=== PATIENT | female | born 1955 | race Two or more races ===

== ENCOUNTER 2016-10-21 08:23 | Emergency (ER) | payer OTHER ==
[2016-10-21 08:29] VITALS: BMI 25.0
--- NOTE | 2016-10-21 09:03 | PDOC ---
History of Present Illness <Donaldo Chavez - Last Filed: 10/21/16 10:56> - History of Present Illness Initial Comments: 10/21/16 08:58 Ms. Logan is a 61 year old female with a significant past medical history of HTN and hyperlipidemia who presents to the emergency department with a 2-3 week history of cough with intermittent chest pain she reports is unrelated to the cough. She also reports recent increased urinary frequency. The patient denies, shortness of breath, headache and dizziness. Denies fever, chills, nausea, vomit, diarrhea and constipation. Denies dysuria, urgency and hematuria. Allergies: NKDA Past surgical history: Denies Social history: Denies PMD - None <Gio Barakat - Last Filed: 10/21/16 11:43> - General Chief Complaint: Respiratory Stated Complaint: HEADACHE Time Seen by Provider: 10/21/16 08:40 Past History <Donaldo Chavze - Last Filed: 10/21/16 10:56> - Past Medical History HTN: Yes Hypercholesterolemia: Yes - Psycho/Social/Smoking Cessation Hx Suicidal Ideation: No Smoking History: Never smoked <Gio Barakat - Last Filed: 10/21/16 11:43> - Past Medical History Allergies/Adverse Reactions: Allergies Allergy/AdvReac Type Severity Reaction Status Date / Time No Known Allergies Allergy Verified 10/21/16 08:24 Home Medications: Ambulatory Orders Benzonatate [Tessalon Pearls -] 100 mg PO TID #21 capsule 10/21/16 Hydrochlorothiazide [Hctz -] 25 mg PO DAILY 10/21/16 Simvastatin 40 mg PO DAILY 10/21/16 Review of Systems - Review of Systems Comments:: 10/21/16 08:58 GENERAL/CONSTITUTIONAL: No fever or chills. No weakness. HEAD, EYES, EARS, NOSE AND THROAT: No change in vision. No ear pain or discharge. No sore throat. CARDIOVASCULAR: +Intermittent chest pain with cough. No shortness of breath RESPIRATORY: +Dry cough on and off. No wheezing, or hemoptysis. GASTROINTESTINAL: No nausea, vomiting, diarrhea or constipation. GENITOURINARY: +Recent increased frequency. No dysuria, or change in urination. MUSCULOSKELETAL: No joint or muscle swelling or pain. No neck or back pain. SKIN: No rash NEUROLOGIC: No headache, vertigo, loss of consciousness, or change in strength/ sensation. ENDOCRINE: No increased thirst. No abnormal weight change HEMATOLOGIC/LYMPHATIC: No anemia, easy bleeding, or history of blood clots. ALLERGIC/IMMUNOLOGIC: No hives or skin allergy. 10/21/16 09:50 <Gio Barakat - Last Filed: 10/21/16 11:43> *Physical Exam - Vital Signs Last Vital Signs Temp Pulse Resp BP Pulse Ox 98 F 83 19 148/84 100 10/21/16 08:24 10/21/16 08:24 10/21/16 08:24 10/21/16 08:24 10/21/16 09:00 <Donaldo Chavez - Last Filed: 10/21/16 10:56> - Vital Signs Last Vital Signs Temp Pulse Resp BP Pulse Ox 98 F 83 19 148/84 97 10/21/16 08:24 10/21/16 08:24 10/21/16 08:24 10/21/16 08:24 10/21/16 08:24 - Physical Exam Comments: 10/21/16 08:59 GENERAL: Awake, alert, and fully oriented, in no acute distress HEAD: No signs of trauma, normocephalic, atraumatic EYES: PERRLA, EOMI, sclera anicteric, conjunctiva clear ENT: Auricles normal inspection, hearing grossly normal, nares patent, oropharynx clear without exudates. Moist mucosa NECK: Normal ROM, supple, no lymphadenopathy, JVD, or masses LUNGS: +Dry cough observed. Mild reproducible pain on sternal palpation. No distress, speaks full sentences, clear to auscultation bilaterally HEART: Regular rate and rhythm, normal S1 and S2, no murmurs, rubs or gallops, peripheral pulses normal and equal bilaterally. ABDOMEN: Soft, nontender, normoactive bowel sounds. No guarding, no rebound. No masses EXTREMITIES: Normal inspection, Normal range of motion, no edema. No clubbing or cyanosis. NEUROLOGICAL: Cranial nerves II through XII grossly intact. Normal speech, normal gait, no focal sensorimotor deficits SKIN: Warm, Dry, normal turgor, no rashes or lesions noted. <Gio Barakat - Last Filed: 10/21/16 11:43> Heart Score/ECG Review - ECG Impressions Comment:: 10/21/16 09:52 Normal rate, normal rhythm. Normal access, no concerning ST elevations. Normal EKG. <Gio Barakat - Last Filed: 10/21/16 11:43> ED Treatment Course - LABORATORY CBC & Chemistry Diagram: 10/21/16 09:45 10/21/16 09:45 - ADDITIONAL ORDERS Additional order review: Laboratory Results 10/21/16 10/21/16 10/21/16 10:32 10:32 09:45 Sodium 142 Potassium 4.0 Chloride 104 Carbon Dioxide 30 Anion Gap 8 BUN 9 Creatinine 0.8 Creat Clearance w eGFR > 60 Random Glucose 93 Calcium 9.4 Total Bilirubin 1.1 H AST 18 ALT 22 Alkaline Phosphatase 79 Creatine Kinase Cancelled Troponin I Cancelled Total Protein 7.2 Albumin 3.7 Urine Color Colorless Urine Appearance Clear Urine pH 8.0 Urine Protein Negative Urine Glucose (UA) Negative Urine Ketones Negative Urine Blood Negative Urine Nitrite Negative Urine Bilirubin Negative Urine Urobilinogen Negative Ur Leukocyte Esterase Negative 10/21/16 09:45 RBC 4.53 MCV 90.1 MCHC 33.4 RDW 13.2 MPV 7.9 Neutrophils % 59.6 Lymphocytes % 26.4 Monocytes % 11.6 H Eosinophils % 1.7 Basophils % 0.7 - Medications Given in the ED: ED Medications Discontinued Medications Generic Name Dose Route Start Last Admin Trade Name Han PRN Reason Stop Dose Admin Ibuprofen 400 mg 10/21/16 09:33 10/21/16 09:38 Motrin - PO 10/21/16 09:34 400 mg ONCE ONE Administration <Donaldo Chavez - Last Filed: 10/21/16 10:56> - LABORATORY CBC & Chemistry Diagram: 10/21/16 09:45 10/21/16 09:45 <Gio Barakat - Last Filed: 10/21/16 11:43> Medical Decision Making - Medical Decision Making 10/21/16 11:28 Ms. Logan reports intermittent cough and reproducible chest pain. 10/21/16 11:31 Labs grossly normal for Ms. Logan, CXR negative for pathology, EKG normal. Bronchitis diagnosed, will give tessilon pearls for cough symptoms. Laboratory Results - last 24 hr 10/21/16 10/21/16 10/21/16 09:45 09:45 10:32 WBC 6.4 RBC 4.53 Hgb 13.6 Hct 40.8 MCV 90.1 MCH 30.1 MCHC 33.4 RDW 13.2 Plt Count 248 MPV 7.9 Neutrophils % 59.6 Lymphocytes % 26.4 Monocytes % 11.6 H Eosinophils % 1.7 Basophils % 0.7 Sodium 142 Potassium 4.0 Chloride 104 Carbon Dioxide 30 Anion Gap 8 BUN 9 Creatinine 0.8 Creat Clearance w eGFR > 60 Random Glucose 93 Calcium 9.4 Total Bilirubin 1.1 H AST 18 ALT 22 Alkaline Phosphatase 79 Creatine Kinase 76 Troponin I < 0.02 Total Protein 7.2 Albumin 3.7 Urine Color Colorless Urine Appearance Clear Urine pH 8.0 Urine Protein Negative Urine Glucose (UA) Negative Urine Ketones Negative Urine Blood Negative Urine Nitrite Negative Urine Bilirubin Negative Urine Urobilinogen Negative Ur Leukocyte Esterase Negative 10/21/16 10:32 WBC RBC Hgb Hct MCV MCH MCHC RDW Plt Count MPV Neutrophils % Lymphocytes % Monocytes % Eosinophils % Basophils % Sodium Potassium Chloride Carbon Dioxide Anion Gap BUN Creatinine Creat Clearance w eGFR Random Glucose Calcium Total Bilirubin AST ALT Alkaline Phosphatase Creatine Kinase Cancelled Troponin I Cancelled Total Protein Albumin Urine Color Urine Appearance Urine pH Urine Protein Urine Glucose (UA) Urine Ketones Urine Blood Urine Nitrite Urine Bilirubin Urine Urobilinogen Ur Leukocyte Esterase 10/21/16 11:37 10/21/16 11:42 <Gio Barakat - Last Filed: 10/21/16 11:43> *DC/Admit/Observation/Transfer <Donaldo Chavez - Last Filed: 10/21/16 10:56> - Attestations Physician Attestion: 10/21/16 11:43 I, Dr. Gio Barakat, attest that this document has been prepared under my direction and personally reviewed by me in its entirety. I further attest, that it accurately reflects all work, treatment, procedures and medical decision -making performed by me. <Gio Barakat - Last Filed: 10/21/16 11:43> Diagnosis at time of Disposition: Bronchitis - Discharge Dispostion Disposition: HOME - Referrals Referrals: Hayley Shelby NP [Primary Care Provider] - - Patient Instructions Printed Discharge Instructions: DI for Acute Bronchitis Additional Instructions: Please return if additional chest pain or other concerning symptoms.
[2016-10-21] MEDS ORDERED: IBUPROFEN 400 MG TABLET (FP) PO ONE ×3 (09:33→09:38)
[2016-10-21 09:51] LABS: BASOPHIL 0.7 % (0-2.0); EOSINOPHIL 1.7 % (0-4.5); MCH 30.1 pg (25.7-33.7); MCHC 33.4 g/dl (32.0-36.0); MEAN CELL VOLUME 90.1 fl (80-96); MEAN PLT VOLUME 7.9 fl (7.5-11.1); NEUTROPHILS 59.6 % (42.8-82.8); PLATELET COUNT 248 K/MM3 (134-434); RDW 13.2 % (11.6-15.6); WHITE BLOOD COUNT 6.4 K/mm3 (4.0-10.0)
[2016-10-21 10:20] LABS: ALBUMIN 3.7 g/dl (3.4-5.0); ALK PHOS 79 U/L (45-117); ANION GAP 8 (8-16); BILIRUBIN,TOTAL 1.1 mg/dL (0.2-1.0); CALCIUM 9.4 mg/dL (8.5-10.1); CO2 30 mmol/L (21-32); CREATININE 0.8 mg/dL (0.55-1.02); GLUCOSE,RANDOM 93 mg/dL (74-106); SGOT/AST 18 U/L (15-37); SGPT/ALT 22 U/L (12-78); TOT PROT 7.2 g/dl (6.4-8.2)
[2016-10-21 10:37] LABS: URINE APPEARANCE CLEAR; URINE BILIRUBIN NEGATIVE (NEGATIVE); URINE BLOOD NEGATIVE (NEGATIVE); URINE COLOR COLORLESS; URINE GLUCOSE (UA) NEGATIVE (NEGATIVE); URINE KETONE NEGATIVE (NEGATIVE); URINE LEUK ESTERASE NEGATIVE (NEGATIVE); URINE NITRITE NEGATIVE (NEGATIVE); URINE PROTEIN NEGATIVE (NEGATIVE); URINE UROBILINOGEN NEGATIVE mg/dL (0.2-1.0)
--- NOTE | 2016-10-21 10:57 | PDOC ---
Attending Attestation - Resident Resident Name: Gio Barakat - ED Attending Attestation I have performed the following: I have examined & evaluated the patient, The case was reviewed & discussed with the resident, I agree w/resident's findings & plan, Exceptions are as noted - HPI HPI: 10/21/16 11:12 61y F hx of htn, hl, presents with approximately 2-3 weeks of nonproductive cough without fever/chills, leg swelling, hemoptysis. Pt had an episode of chest pain this morning that she described as cramping lasting for a few minutes before resolving an dstarting again approx 2am. pt currently asypmtomatc. pt notes similar episode of pain 2 weeks ago also when she was sleeping. Pt denies any associated exertional symtoms, n/v diaphoresis, hemoptysis, leg swelling, calf pain. GENERAL: The patient is awake, alert, and fully oriented, Nontoxic - in no acute distress. HEAD: Normocephalic, atraumatic. EYES: extraocular movements intact, sclera anicteric, conjunctiva clear. ENT: Normal voice, Moist mucous membranes. NECK: Normal range of motion, supple LUNGS: Breath sounds equal, clear to auscultation bilaterally. No wheezes, no rhonchi, no rales. HEART: Regular rate and rhythm, normal S1 and S2 without murmur, rub or gallop. ABDOMEN: Soft, nontender, normoactive bowel sounds. No guarding, no rebound. . No CVA tenderness EXTREMITIES: Normal range of motion, no edema. NEUROLOGICAL: No facial assymetry, Normal speech, PSYCH: Normal mood, normal affect. SKIN: Warm, Dry, normal turgor, suspect bronchitis will obtain trop due to risk factors, however her symptoms are atypical of ACS ekg wnl cxr clear of infiltrates will have pt fu with PMD (Dr. Shelby) next week Heart Score/ECG Review - History History: Slightly suspicious - Electrocardiogram EKG: Non specific repolarization disturbance - Age Age: 45-65 - Risk Factors Risk Factors Heart Score: Yes Hx Hypercholesterolemia, Yes Hx Hypertension Based on the list above the patient has:: 1-2 risk factors - Troponin Troponin: </= normal limit - Score Heart Score - Total: 3 - ECG Impressions Comment:: 10/21/16 11:21 Twelve-lead EKG was performed and reviewed by me. There is normal sinus rhythm with a normal rate. Rate of 64 Incomplete right bundle-branch block Nonspecific T-wave inversion in lead 3
[2016-10-21 11:10] LABS: CPK 76 IU/L (26-192); TROPONIN I < 0.02 ng/ml (0.00-0.05)
[2016-10-21 11:57] VITALS: BP 138/74; PULSE 78; TEMP 98.6
--- NOTE | 2016-10-22 08:15 | EKG ---
Test Reason : Blood Pressure : / mmHG Vent. Rate : 064 BPM Atrial Rate : 064 BPM P-R Int : 148 ms QRS Dur : 104 ms QT Int : 404 ms P-R-T Axes : 021 -19 -13 degrees QTc Int : 416 ms NORMAL SINUS RHYTHM INCOMPLETE RIGHT BUNDLE BRANCH BLOCK BORDERLINE ECG NO PREVIOUS ECGS AVAILABLE Confirmed by SARI STAPLETON MD ([id number]) on 10/22/2016 8:15:14 AM Referred By: Confirmed By:SARI STAPLETON MD
== END 2016-10-21 11:56 | disposition home or self-care (01) ==
LOC: JER 08:23 → JERFT 08:23 → JER 11:56
DX: J20.9 Acute bronchitis, unspecified (principal)
CPT/HCPCS: 36415; 71020-TC; 80053; 81003; 84484; 85025; 93005; 93010; 99284-25

== ENCOUNTER 2018-10-30 06:53 | Day surgery (SDC) | payer OTHER ==
[2018-10-24 13:18] VITALS: BMI 24.2
[2018-10-30] MEDS ORDERED: LIDOCAINE HCL 2% (20ML MULTI-DOSE VIAL) NR ONE (09:27)
[2018-10-30] MEDS ORDERED: DEXAMETHASONE SOD PHOSPHATE 4 MG/1 ML VIAL ONE ×2 (09:53→10:26)
[2018-10-30] MEDS ORDERED: MIDAZOLAM HCL 2 MG/2 ML SINGLE DOSE VIAL ONE (09:54)
[2018-10-30] MEDS ORDERED: ONDANSETRON 4 MG/2 ML VIAL ONE ×2 (09:54→10:26)
[2018-10-30] MEDS ORDERED: SUCCINYLCHOLINE CHLORIDE 200 MG/10 ML SYRINGE ONE (10:13)
[2018-10-30] MEDS ORDERED: KETOROLAC TROMETHAMINE 30 MG/1 ML VIAL ONE (10:26)
[2018-10-30 11:10] VITALS: TEMP 97.7
[2018-10-30 11:35] VITALS: BP 119/74; PULSE 58
[2018-10-30] MEDS ORDERED: ACETAMINOPHEN 325 MG TABLET (FP) PO PRN (11:38)
[2018-10-30] MEDS ORDERED: oxyCODONE HCL 5 MG TABLET PO PRN ×2 (11:38)
[2018-10-30] MEDS ORDERED: ONDANSETRON 4 MG/2 ML VIAL IVPUSH PRN (11:38)
[2018-10-30] MEDS ORDERED: LACTATED RINGERS SOLUTION 1,000 ML IV SCH (11:45)
--- NOTE | 2018-11-01 18:19 | PATH ---
Surgical Pathology Report Patient Name: ROBERTO WEAVER [facility]. Rec. #: [id number] /Age/Gender: 1955 (Age: 63) / F Account: [id number] Location: COUNTS INCLUDE 234 BEDS AT THE [facility] AM[facility] Taken: 10/30/2018 Received: 10/30/2018 Reported: 11/01/2018 Physicians: Brayden Hernandez M.D. Specimen(s) Received RIGHT LONG FINGER MASS Clinical History Right long trigger finger and right long finger mass Final Diagnosis LONG FINGER MASS, RIGHT, EXCISION: FIBROCONNECTIVE TISSUE WITH MYXOID CHANGE CONSISTENT WITH GANGLION CYST. Electronically Signed Niharika López M.D. Gross Description Received in formalin labeled "right long finger mass," is a 0.5 x 0.3 x 0.1 cm chiu-yellow portion of soft tissue. The specimen is submitted in toto in one cassette. /10/31/2018 saudi10/31/2018
--- NOTE | 2018-11-03 13:51 | OP ---
DATE OF OPERATION: 10/30/2018 PREOPERATIVE DIAGNOSES: 1. Left long trigger finger. 2. Left long finger mass. PROCEDURE: 1. Left long finger trigger finger. 2. Left long finger mass excision. SURGEON: Gladys Wayne MD ENZYME CHEMIST: SHANT Lopez ANESTHESIA: Local with sedation. COMPLICATIONS: None. ESTIMATED BLOOD LOSS: Minimal. INDICATION FOR PROCEDURE: The patient is a 63-year-old female with the above noted finding, indicated for operative treatment. Risks, benefits, alternatives were discussed with the patient at length. Proper informed consent was obtained. PROCEDURE: After proper identification of patient and correct operative site, the patient was brought to the operating room and placed in supine on the table with bony prominences well-padded. Sedation and local anesthesia were given with 2% lidocaine. The left upper extremity was prepped and draped in the usual sterile fashion. A well-padded tourniquet was placed over the sterile prep, Esmarch bandage to exsanguinate left lower extremity, tourniquet was inflated to 250 mmHg. A longitudinal incision was made over the A1 kristian to the long finger. Incision taken sharply through skin with blunt and sharp dissection of subcutaneous tissues. The A1 kristian was identified and divided longitudinally. The patient was then able to flex and extend her finger without further triggering. A 2nd incision was made in the midaxial line along the proximal phalanx where the mass is present. Incision was taken sharply through skin with blunt and sharp dissection of the subcutaneous tissues. The mass was found to be a cystic structure emanating likely from the flexor tendon sheath. It was excised in whole, taking care to protect neurovascular structures. The wounds were irrigated and repaired with 5-0 fast-absorbing plain gut suture. Sterile dressings were applied. Elisa Forde, the recreation assistant, was interval throughout the procedure. The procedure could not have been performed without a skilled operative recreation assistant. GLADYS WAYNE M.D. [id number]
== END 2018-10-30 11:52 | disposition home or self-care (01) ==
LOC: FASU 06:53
PROVIDERS: ATTEND Orthopaedic Surgery Hand Surgery
PROC: 0LN70ZZ Release Right Hand Tendon, Open Approach (ICD-10-PCS; 2018-10-30)
PROC: 0LB70ZZ Excision of Right Hand Tendon, Open Approach (ICD-10-PCS; principal; 2018-10-30 10:24)
DX: M65.331 Trigger finger, right middle finger (principal); M67.441 Ganglion, right hand
CPT/HCPCS: 88304-TC